=== PATIENT | male | born 1950 | race Caucasian/White ===

== ENCOUNTER 2023-04-17 13:56 | Outpatient (OUT) | payer MEDICARE, SELFPAY ==
--- NOTE | 2023-04-17 | ECG_ITS ---
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
[2023-04-17 14:35] LABS: Basophils Absolute Auto 0.1 10^3/uL (0.0-0.1); Basophils Percent Auto 0.9 % (0.2-2.0); Eosinophils Absolute Auto 0.2 10^3/uL (0.0-0.7); Eosinophils Percent Auto 1.7 % (0.9-7.0); Hemoglobin 14.7 g/dL (14.0-18.0); Immature Granulocytes Abs Auto 0.04 10^3/uL (0.00-0.03); Immature Granulocytes Pct Auto 0.4 % (0.0-0.5); Lymphocytes Absolute Auto 1.4 10^3/uL (1.2-3.8); Lymphocytes Percent Auto 15.5 % (20.5-60.0); Mean Corpuscular HGB Conc 34.2 g/dL (29.9-35.2); Mean Corpuscular Hemoglobin 32.2 pg (25.9-34.0); Mean Corpuscular Volume 94.3 fL (80.0-94.0); Monocytes Absolute Auto 1.1 10^3/uL (0.3-0.8); Monocytes Percent Auto 12.1 % (1.7-12.0); Neutrophils Absolute Auto 6.4 10^3/uL (1.4-6.5); Neutrophils Percent Auto 69.4 % (43.0-75.0); Platelet Count 243 10^3/uL (150-450); Red Blood Count 4.56 10^6/uL (4.70-6.10); Red Cell Distribution Width 12.1 % (11.0-15.0); White Blood Count 9.2 10^3/uL (4.0-11.0)
[2023-04-17 14:41] LABS: INR 1.03; Partial Thromboplastin Time 29.5 sec (22.3-36.2); Prothrombin Time 10.9 sec (9.0-11.6)
[2023-04-17 14:42] LABS: Anion Gap 11.5; BUN Creatinine Ratio 11.6; Calcium 9.1 mg/dL (8.5-10.1); Carbon Dioxide 27.7 mmol/L (21.0-32.0); Chloride 102 mmol/L (98-107); Estimated GFR (African America 54 (>=60); Estimated GFR (Non-African Ame 44 (>=60); Glucose 100 mg/dL (74-106); Potassium 4.2 mmol/L (3.5-5.1); Sodium 137 mmol/L (136-145)
== END 2023-04-17 13:57 | disposition home or self-care (01) ==
LOC: LAB 14:02
PROVIDERS: PCP Internal Medicine; Visit Provider Urology
DX: N20.0 Calculus of kidney (principal); R10.9 Unspecified abdominal pain; I10 Essential (primary) hypertension; E78.00 Pure hypercholesterolemia, unspecified
CPT/HCPCS: 36415; 80048; 85025; 85610; 85730; 93005

== ENCOUNTER 2023-04-20 06:12 | Day surgery (SDC) | payer MEDICARE, SELFPAY ==
[2023-04-20] VITALS (9 sets, daily range): BP systolic 103–146; BP diastolic 68–92; PULSE 62–76; RESP 14–20; TEMP 36.1–36.8; O2SAT 93–98; BMI 31.5
[2023-04-20 06:48] LABS: Glucometer 96 mg/dL (74-106)
[2023-04-20] MEDS: LACTATED RINGER'S SOLUTION 1,000 ML 50 ML IV (06:49)
[2023-04-20] MEDS: CEFAZOLIN SODIUM/DEXTROSE,ISO 1 GM/50 ML IV.SOLN IV (07:27)
--- NOTE | 2023-04-20 08:08 | P.URON_ITS ---
Urology Surgery Operative Note Operative Note Procedure Date: 04/20/23 Time Out Performed: yes Pre-op Diagnosis: obstructing right ureteral calculus Post-op Diagnosis: same Procedures performed: #1. Urethral dilation with Jeane sounds to 26 B[place]an #2. Cystoscopy. #3. Placement of 6 B[place]an variable length right ureteral stent Anesthesia: other (Gen. by LMA) Primary Surgeon: Adan Mcgill Complications: non- Estimated blood loss (mL): 5 Findings: 1. Urethral stenosis. #2. Tightly obstructing right proximal ureteral calculus. #3. High-pressure purulence E flux post stent placement Specimens: none Indications for Procedures: this gentleman has an 11 mm proximal right ureteral calculus that is obstructing. He has had pain from the stone at has been waxing and waning for at least 2-3 months. He has been on Keflex. He now presents for cystoscopy and right stent placement with possible ureteroscopic stone manipulation. She has signed an informed consent after all the risks were explained. Detailed description of Procedure: The patient was brought to the operating room and placed on the operating room table in the supine position. SCDs were placed on the lower extremities and turned on and functioning during the entire case. Timeout was done by all parties in the room. We all agreed upon the patient's identification and the planned procedures for this patient. Genn. anesthesia was then administered. The patient was then repositioned into the modified dorsal lithotomy position. All pressure points were satisfactorily padded. Genitalia were sterilely prepped and draped in usual fashion.I started by attempting to pass a 22 B[place] Olympus cystoscope but was unable due to urethral meatal stenosis. I then used Jeane sounds and dilated him from 20 B[place]an up to 26 [place]an. I then was able to pass the cystoscope into the bladder. The rest of the urethra was normal. The prostatic urethra showed prostatic calcifications diffusely with by lobar hypertrophy. Panendoscopy in the bladder showed high-grade trabeculation with diverticuli formation but no evidence of any tumors or stones. While using fluoroscopy, we could see the stone at the L 2- 3 level. I then passeda Glidewire through the scope and cannulated the right ureter. The wire buckled when I got to the stone. Numerous attempts were used and finally the wire went beyond the stone into the kidney. He had an immediate E flux of cloudy urine coming down the ureter into the bladder. This continued and intennsified. I then elected not to do ureteroscopy. I then passed a 6 Botswanan variable length ureteral stent over the wire. When it got to the stone it buckled also. With steady pressure stent was able to get beyond the stone and into the kidney. In doing so, it advanced the stone proximally into the renal pelvis. When the Glidewire was removed and there was an immediate high-pressure E flux of rather dramatic cloudy inflammatory urine into the bladder. A large aspirate was obtained and sent for culture and sensitivity. There were good curls within the renal pelvis and in the bladder. The bladder was drained of its contents and the scope was then removed. He was then transferred to a rredding bed and wheeled to PACU in stable condition.
[2023-04-20] MEDS: SOLIFENACIN SUCCINATE 10 MG TABLET PO (08:24)
== END 2023-04-20 09:00 | disposition home or self-care (01) ==
PROVIDERS: PCP Internal Medicine; Visit Provider Urology
PROC: (CPT 52332; principal; 2023-04-20 07:30)
DX: N13.2 Hydronephrosis with renal and ureteral calculous obstruction (principal); N35.911 Unspecified urethral stricture, male, meatal; Z79.899 Other long term (current) drug therapy; Z79.84 Long term (current) use of oral hypoglycemic drugs
CPT/HCPCS: 52332; 36415; 76000; 82948; 87086; 99999; C1874; J2704

== ENCOUNTER 2023-04-30 15:56 | Outpatient (OUT) | payer MEDICARE, SELFPAY | END 2023-04-30 15:57 | disposition home or self-care (01) | LOC: PST 15:56 | PROVIDERS: PCP Internal Medicine; Visit Provider Urology | DX: Z01.818 Encounter for other preprocedural examination (principal); N20.0 Calculus of kidney ==

== ENCOUNTER 2023-05-07 10:52 | Day surgery (SDC) | payer MEDICARE, SELFPAY ==
[2023-05-07] VITALS (12 sets, daily range): BP systolic 117–150; BP diastolic 68–101; PULSE 68–79; RESP 11–18; TEMP 36.3; O2SAT 94–99; BMI 31.2
--- NOTE | 2023-05-07 10:45 | XR_ITS ---
The [address] [address] Patient Name: DEVAN ASHTON MRN: [id number] date: 1950 Sex: M Assigned Patient Location: [facility] Current Patient Location: [facility] Accession/Order Number: [id number] Exam Date: 05/07/2023 10:50 Report Date: 05/07/2023 15:45 At the request of: HENNY SCHWARTZ Procedure: XR abdomen 1V EXAMINATION: XR abdomen 1V, [id number] HISTORY: kidney stones COMPARISON: None. FINDINGS/IMPRESSION: A right-sided double-J ureteral stent is present. Calcification projecting over the right ureteropelvic junction measuring 10 x 6 mm. There are 2 small foci of increased attenuation projecting of the left kidney which could represent kidney stones versus fecal material. No calcification projecting over the course of the ureters. Mildly above-average colonic stool burden. Electronically authenticated by: RAMESH HILARIO Date: 05/07/2023 15:45
[2023-05-07 11:31] LABS: Glucometer 93 mg/dL (74-106)
[2023-05-07] MEDS: LACTATED RINGER'S SOLUTION 1,000 ML 50 ML IV ×2 (11:32→14:12)
[2023-05-07] MEDS: CEFAZOLIN SODIUM/DEXTROSE,ISO 1 GM/50 ML IV.SOLN IV (13:10)
--- NOTE | 2023-05-07 14:47 | PM.URSON ---
Urology Surgery Operative Note Operative Note Procedure Date: 05/07/23 Time Out Performed: yes Pre-op Diagnosis: tightly obstructing right UPJ 11-12 mm stone; status post right stent placement Post-op Diagnosis: other (right UPJ stricture) Procedures performed: #1. Cystoscopy. 2. Right stent change to 6 Bolivian variable length. #3. Right rigid ureteral dilation. #4. Right ureteroscopy. #5. Holmium laser lithotripsy of large right ureteral stone. #6. Right ureteral stone basket extraction.#7. Urethral dilation with Jeane sounds to 26 Bolivian. Anesthesia: General-LMA Primary Surgeon: Adan Mcgill Complications: non- Estimated blood loss (mL): 5 Findings: #1. Very large very hard tightly obstructing UPJ stone. #2. Right UPJ stricture Specimens: right UPJ calculus Indications for Procedures: this gentleman has a very large tightly obstructing right UPJ stone for which he has been stented. He now presents for right ESWL and possible definitive ureteroscopic stone manipulation with holmium laser along with possible right stent change.He has signed an informed consent after all the risks were explained to him.alysa with stent change. Detailed description of Procedure: The patient was brought to the Operating Room and placed on Siemens electromagnetic lithotripsy treatment table in the supine position. SCDs were placed on their lower extremities and turned on and functioning during the entire case. Timeout was done by all parties in the room. We all agreed upon the patient's identification and the planned procedures for this patient. General Anesthesia was then administered via LMA. Treatment head was then brought to the patient's right side. While using flourscopy the stone was identified and lined up into the crosshairs. We then began applying shocks at power level II.0 and increased to a maximum power level III.5. Intermittent fluoroscopy showed that the stone was very slow to fragment. We ended up applying 2000 shocks and had minimal fragmentation. The procedure was then terminated. He was then repositioned into the modified dorsal lithotomy position. All pressure points were satisfactorily padded. Genitalia were sterilely prepped and draped in usual fashion. I then started by passing a 22 Bolivian Olympus cystoscope per urethra but was unable due to meatal stenosis. I then used [place] sounds and dilated his meatus up to 26 Bolivian. I then was able to pass the scope through the urethra and into the bladder. The stent was identified. A flexible grasping forceps was passed and the end of the stent was grasped. I then brought the end of the stent out of the urethral meatus. I then slid a Glidewire through the stent up into the kidney and remove the old stent. A navigator 08/10 ureteral access sheath over the wire and up the ureter to the L5 position. The wire and stylette were removed. I then passed a flexible ureteroscope through the access sheath and into the ureter. I then ascended up the ureter and arrived at the stone. The stone was tightly obstructing the UPJ. It was impacted. I then used a 200 ? holmium laser fiber and passed it through the scope and made contact with the stone. I then set the mode to dusting and began doing laser lithotripsy at 10 W continuously. The stone would not fragment at 10 W. I increased up to 12 W and then ultimately to 14 W. The stone finally began to fragment slowly. One could see that the UPJ was strictured down from the stone. A 0 tip nitinol basket was used intermittently to extract pieces out. These were all sent for analysis. I had to laser several thousand pulses in order to get the stone fragmented enough to rremove all the pieces. I was able to get the scope through the strictured UPJ and into the kidney. No other stones were seen. I then passed a Glidewire through the scope into the kidney and removed the scope. I then removed the access sheath. I then asked loaded the cystoscope over the wire and passed it into the bladder. I then slid a new 6 Bolivian variable length ureteral stent over the wire into the kidney. The wire was removed and there were good curls in the kidney and in the bladder. The bladder was drained of its contents and the scope was then removed. He was then transferred to a [facility] bed and wheeled to PACU in stable condition. The last fluoroscopic view showed no evidence of stone remaining.
[2023-05-07] MEDS: SOLIFENACIN SUCCINATE 10 MG TABLET PO (15:04)
[2023-05-07] MEDS: HYDROCODONE/ACETAMINOPHEN 5-325 MG TABLET 1 TAB PO (15:35)
[2023-05-07] MEDS: HYOSCYAMINE SULFATE 0.125 MG/ML DROPS 0.25 MG PO (16:10)
[2023-05-15 15:13] LABS: Calcium Oxalate Monohydrate 100 % (.); Size 2x4 mm (.); Source Kidney (.)
== END 2023-05-07 16:47 | disposition home or self-care (01) ==
PROVIDERS: PCP Internal Medicine; Visit Provider Urology
PROC: (CPT 52356; principal; 2023-05-07 13:20)
DX: N13.2 Hydronephrosis with renal and ureteral calculous obstruction (principal); N35.911 Unspecified urethral stricture, male, meatal; Z79.899 Other long term (current) drug therapy
CPT/HCPCS: 52356; 36415; 74018; 82365; 82948; 99999; C1874; J2704

== ENCOUNTER 2023-08-18 08:56 | Outpatient (OUT) | payer MEDICARE, SELFPAY ==
--- NOTE | 2023-08-18 08:58 | ECG_ITS ---
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
[2023-08-18 09:37] LABS: Basophils Absolute Auto 0.1 10^3/uL (0.0-0.1); Eosinophils Absolute Auto 0.2 10^3/uL (0.0-0.7); Eosinophils Percent Auto 2.4 % (0.9-7.0); Hematocrit 40.6 % (42.0-54.0); Hemoglobin 13.7 g/dL (14.0-18.0); Immature Granulocytes Abs Auto 0.03 10^3/uL (0.00-0.03); Immature Granulocytes Pct Auto 0.4 % (0.0-0.5); Lymphocytes Absolute Auto 1.7 10^3/uL (1.2-3.8); Lymphocytes Percent Auto 23.6 % (20.5-60.0); Mean Corpuscular HGB Conc 33.7 g/dL (29.9-35.2); Mean Corpuscular Hemoglobin 32.6 pg (25.9-34.0); Mean Corpuscular Volume 96.7 fL (80.0-94.0); Monocytes Absolute Auto 0.9 10^3/uL (0.3-0.8); Monocytes Percent Auto 12.1 % (1.7-12.0); Neutrophils Absolute Auto 4.4 10^3/uL (1.4-6.5); Neutrophils Percent Auto 60.5 % (43.0-75.0); Platelet Count 243 10^3/uL (150-450); Red Cell Distribution Width 12.3 % (11.0-15.0); White Blood Count 7.2 10^3/uL (4.0-11.0)
--- NOTE | 2023-08-18 09:42 | PM.PRESUREVA ---
History of Present Illness History of Present Illness Chief complaint: right kidney stone Narrative: Presents for preadmission testing. The patient states he is being treated for right-sided kidney stones. He states he had an episode about four months ago and he had a stent inserted which was subsequently removed. He states he's had a few instances of right flank pain but otherwise no complaints. He denies hematuria, dysuria, abdominal pain, nausea, vomiting, fever, or any other complaints. Review of Systems ROS Narrative REVIEW OF SYSTEMS: Negative except as stated in HPI, ten or more systems reviewed. Constitutional: No fever , chills, weakness ENT: No sore throat or epistaxis Cardiovascular: No edema, chest pain, palpitations, or activity intolerance Respiratory: No shortness of breath, cough, or wheezing Musculoskeletal: No joint pain or swelling Gastrointestinal: No abdominal pain, constipation, diarrhea, or vomiting Genitourinary: No dysuria or hematuria Neurological: No numbness, tingling, weakness, or headache Psychiatric: No mood changes PFSH PFS Medical History (Updated 08/18/23 @ 09:47 by Lili Madrigal NP) Arthritis ?M19.90 - Unspecified osteoarthritis, unspecified site (ICD-10) Diabetes ?E11.9 - Type 2 diabetes mellitus without complications (ICD-10) GERD (gastroesophageal reflux disease) ?K21.9 - Gastro-esophageal reflux disease without esophagitis (ICD-10) High cholesterol ?E78.00 - Pure hypercholesterolemia, unspecified (ICD-10) Hypertension ?I10 - Essential (primary) hypertension (ICD-10) Kidney stone ?N20.0 - Calculus of kidney (ICD-10) Reflux gastritis ?K29.60 - Other gastritis without bleeding (ICD-10) Renal cyst ?N28.1 - Cyst of kidney, acquired (ICD-10) Seasonal allergies ?J30.2 - Other seasonal allergic rhinitis (ICD-10) Surgical History (Updated 08/18/23 @ 09:20 by Lili Madrigal NP) H/O umbilical hernia repair ?Z98.890 - Other specified postprocedural states (ICD-10) ?Z87.19 - Personal history of other diseases of the digestive system (ICD-10) Hx of tonsillectomy ?Z90.89 - Acquired absence of other organs (ICD-10) S/P cystoscopy ?Z98.890 - Other specified postprocedural states (ICD-10) S/P right knee arthroscopy ?Z98.890 - Other specified postprocedural states (ICD-10) S/P ureteral stent placement ?Z96.0 - Presence of urogenital implants (ICD-10) Family History (Updated 04/17/23 @ 15:23 by Ernestina Bedoya RN) Other Arthritis Diabetes Heart disease Hypertension Renal failure Social History (Updated 04/30/23 @ 12:37 by Dee Funk) Within the past year, how often did you have a drink containing alcohol: 2-3 times a week Smoking status: Never smoker Non-prescribed substance use: denies use Previous occupational history: retired Highest level of school completed/degree received: Bachelor's degree Meds Home Medications and Allergies Home Medications Medication Instructions Recorded Confirmed Type cetirizine 10 mg disintegrating 10 mg PO DAILY PRN allergy symptoms 04/17/23 08/18/23 History tablet losartan 100 mg tablet 100 mg PO DAILY 04/17/23 08/18/23 History multivitamin (Daily Multi-Vitamin 1 tab PO QAM 04/17/23 08/18/23 History tablet) naproxen sodium 220 mg capsule 220 mg PO Q12H 04/17/23 08/18/23 History (Aleve) pantoprazole 40 mg tablet,delayed 40 mg PO DAILY 04/17/23 08/18/23 History release lovastatin 40 mg tablet 40 mg PO DAILY 08/18/23 08/18/23 History semaglutide 1 mg/dose (4 mg/3 mL) 0.5 mg subcut QWEEK 08/18/23 08/18/23 History subcutaneous pen injector (Ozempic) Allergies Allergy/AdvReac Type Severity Reaction Status Date / Time acetaminophen [From Percocet] AdvReac Mild Insomnia Verified 04/17/23 15:39 oxycodone [From Percocet] AdvReac Mild Insomnia Verified 04/17/23 15:39 Exam Narrative Exam Narrative: Constitutional: Awake, alert, comfortable, well-appearing, nontoxic, interactive, vital signs as charted Head: Normocephalic, atraumatic Neck: Supple, normal appearance, normal range of motion, no meningeal signs, no lymphadenopathy Respiratory: No respiratory distress, breath sounds clear Cardiovascular: Regular rate and rhythm, strong and regular heart tones Abdomen: Nontender, normal bowel sounds, soft, no CVA tenderness Musculoskeletal: Normal gait, no swelling or edema Skin: No rashes or induration, no lesions, only visible skin inspected Neuro: No neurological deficits, normal sensation Psychiatric: Oriented ?3, normal affect Assessment and Plan Assessment and Plan (1) Kidney stone: (2) Renal cyst: Plan Right ESWL scheduled with Dr. Mcgill 08/27/2023.
[2023-08-18 09:52] LABS: INR 1.04; Partial Thromboplastin Time 29.3 sec (22.3-36.2)
[2023-08-18 10:39] LABS: Anion Gap 14.8; BUN Creatinine Ratio 14.4; Calcium 8.7 mg/dL (8.5-10.1); Carbon Dioxide 26.5 mmol/L (21.0-32.0); Chloride 104 mmol/L (98-107); Estimated GFR (African America >60 (>=60); Estimated GFR (Non-African Ame >60 (>=60); Glucose 98 mg/dL (74-106); Potassium 4.3 mmol/L (3.5-5.1); Sodium 141 mmol/L (136-145)
== END 2023-08-18 08:57 | disposition home or self-care (01) ==
LOC: PST 08:56
PROVIDERS: PCP Internal Medicine; Visit Provider Urology
DX: Z01.810 Encounter for preprocedural cardiovascular examination (principal); Z01.812 Encounter for preprocedural laboratory examination; N20.0 Calculus of kidney
CPT/HCPCS: 36415; 80048; 85025; 85610; 85730; 93005; G0463

== ENCOUNTER 2023-08-27 09:45 | Day surgery (SDC) | payer MEDICARE, SELFPAY ==
[2023-08-18 09:40] VITALS: BP 129/74; PULSE 64; RESP 16; TEMP 36.2; O2SAT 96; BMI 33.1
[2023-08-27] VITALS (7 sets, daily range): BP systolic 118–140; BP diastolic 73–94; PULSE 65–92; RESP 10–18; TEMP 36.1–36.2; O2SAT 96–98; BMI 33.0
--- NOTE | 2023-08-27 09:15 | XR_ITS ---
The [address] [address] Patient Name: DEVAN ASHTON MRN: [id number] date: 1950 Sex: M Assigned Patient Location: [facility] Current Patient Location: [facility] Accession/Order Number: [id number] Exam Date: 08/27/2023 09:30 Report Date: 08/27/2023 13:41 At the request of: HENNY SCHWARTZ Procedure: XR abdomen 1V EXAM: XR abdomen 1V HISTORY: KIDNEY STONES COMPARISON: None. TECHNIQUE: AP view of the abdomen. FINDINGS: Nonobstructive bowel gas pattern is noted. There is no suspicious calcification. The osseous structures are intact. XR/XR abdomen 1V IMPRESSION: Nonobstructive bowel gas pattern. Constipation. No suspicious renal calcification. Electronically authenticated by: ENZO KASPER Date: 08/27/2023 13:41
[2023-08-27 10:00] LABS: Glucometer 108 mg/dL (74-106)
[2023-08-27] MEDS: LACTATED RINGER'S SOLUTION 1,000 ML 50 ML IV (10:02)
[2023-08-27] MEDS: CEFAZOLIN SODIUM/DEXTROSE,ISO 2 GM/50 ML PIGGYBACK IV (11:33)
--- NOTE | 2023-08-27 12:14 | P.URON_ITS ---
Urology Surgery Operative Note Operative Note Procedure Date: 08/27/23 Time Out Performed: yes Pre-op Diagnosis: , right nephrolithiasis Post-op Diagnosis: same as pre-op Procedures performed: . #1. Right ESWL. Anesthesia: General-LMA Primary Surgeon: Adan Mcgill Complications: none Estimated blood loss (mL): 0 Specimens: . None Indications for Procedures: gentleman had right ESWL A few months ago for a right renal stone burden. He now presents for a 2nd ESWL treatment to complete fragmentation of his original stone burden. He has signed an informed consent after risks were explained. Some of these include bleeding, perinephric hematoma, infection and anesthesia to name a few. Detailed description of Procedure: The patient was brought to the Operating Room and placed on Siemens electromagnetic lithotripsy treatment table in the supine position. SCDs were placed on their lower extremities and turned on and functioning during the entire case. Timeout was done by all parties in the room. We all agreed upon the patient's identification and the planned procedures for this patient. General Anesthesia was then administered via LMA. Treatment head was then brought to the patient's correct side. While using flourscopy the stone was identified and lined up into the crosshairs. We then began applying shocks at power level II.0 and increased to a maximum of power level III.5. Intermittent fluoroscopy showed that the stone steadily fragmented. We applied a total of 3000 shocks and our last fluoroscopic image revealed no evidence of remaining stone. The procedure was then terminated. He was then transferred to a [facility] bed and wheeled to PACU in stable condition.
--- NOTE | 2023-08-27 12:37 | PC.NURSE ---
Quarter sized abrasion to right flank with redness or bruising; no drainage noted
--- NOTE | 2023-08-27 13:02 | PC.NURSE ---
area to right flank unchanged from initial assessment
== END 2023-08-27 13:42 | disposition home or self-care (01) ==
PROVIDERS: PCP Internal Medicine; Visit Provider Urology
PROC: (CPT 50590; principal; 2023-08-27 10:30)
DX: N20.0 Calculus of kidney (principal); K21.9 Gastro-esophageal reflux disease without esophagitis; N28.1 Cyst of kidney, acquired; I10 Essential (primary) hypertension; E11.9 Type 2 diabetes mellitus without complications; E78.5 Hyperlipidemia, unspecified; J30.2 Other seasonal allergic rhinitis; Z79.84 Long term (current) use of oral hypoglycemic drugs
CPT/HCPCS: 50590; 36415; 74018; 82948

== ENCOUNTER 2025-01-19 12:12 | Day surgery (SDC) | payer MEDICARE, SELFPAY ==
[2025-01-19] VITALS (10 sets, daily range): BP systolic 108–159; BP diastolic 68–96; PULSE 61–72; TEMP 36.1–36.4; O2SAT 89–99; BMI 31.1
--- NOTE | 2025-01-19 12:14 | XR_ITS ---
The [address] [address] Patient Name: DEVAN ASHTON MRN: [id number] date: 1950 Sex: M Assigned Patient Location: [facility] Current Patient Location: [facility] Accession/Order Number: [id number] Exam Date: 01/19/2025 13:55 Report Date: 01/19/2025 13:55 At the request of: HENNY SCHWARTZ MD Procedure: XR abdomen 1V KUB: CLINICAL INFORMATION: Kidney stones COMPARISON: None FINDINGS: No suspicious urinary tract calculus. Phleboliths are seen within the pelvis. No bowel obstruction or free air. XR/XR abdomen 1V IMPRESSION: NO SUSPICIOUS URINARY TRACT CALCULUS. Impression dictated by: Marsha Paige Jr.OMartin01/19/2025 1:55 PM Dictation Location: [place] [address] Electronically authenticated by: [id number] Y Date: 01/19/2025 13:55
[2025-01-19 12:57] LABS: Glucometer 85 mg/dL (74-106)
[2025-01-19] MEDS: LACTATED RINGER'S SOLUTION 1,000 ML 50 ML IV (13:08)
[2025-01-19] MEDS: CEFAZOLIN SODIUM 2 GM/50 ML D5W PREMIX IV (14:50)
[2025-01-19] MEDS: IOHEXOL 300 MG/ML - 50 ML BTL INJ (16:15)
[2025-01-19] MEDS: GENTAMICIN SULFATE IV (16:25)
[2025-01-19] MEDS: SODIUM CHLORIDE 0.9% IV (16:25)
--- NOTE | 2025-01-19 16:27 | P.URON_ITS ---
Urology Surgery Operative Note Operative Note Procedure Date: 01/19/25 Time Out Performed: yes Pre-op Diagnosis: Right flank pain and obstructing right upper moiety UPJ calculus Post-op Diagnosis: other (Same plus impacted right upper moiety UPJ calculus. Also, infundibular stenosis) Procedures performed: 1. Right ESWL. 2. Cystoscopy. 3. Right retrograde pyelogram. 4. Right rigid ureteral dilation. 5. Right ureteroscopy. 6. Thulium laser lithotripsy of right upper moiety UPJ calculus. 7. Placement of 6 Nigerian variable length right ureteral stent Anesthesia: General-LMA Primary Surgeon: Adan Mcgill Complications: None Estimated blood loss (mL): 5 Findings: 1. Urethral meatal stenosis. 2. Right distal ureteral stenosis. 3. Right upper pole moiety UPJ obstructing and impacted calculus along with stricture formation. Specimens: None Drains: 6 Nigerian variable length right ureteral stent Indications for Procedures: This gentleman has had right flank pain for a couple months. He finally got a CT scan done and this showed a 4 mm right upper moiety UPJ obstructing calculus and intrarenal calculi. He now presents for right ESWL, possible right ureteroscopic laser lithotripsy and stent placement. He has signed an informed consent after risks were explained. Some of these risks include bleeding, infection, perinephric hematoma, anesthesia to name a few. Detailed description of Procedure: The patient was brought to the Operating Room and placed on Siemens electro magnetic lithotripsy treatment table in the supine position. SCDs were placed on their lower extremities and turned on and functioning during the entire case. Timeout was done by all parties in the room. We all agreed upon the patient's identification and the planned procedures for this patient. General Anesthesia was then administered via LMA. Treatment head was then brought to the patient's correct side. While using flourscopy the right UPJ stone at L1 was identified and lined up into the crosshairs. We then began applying shocks. We started at a power level 2.0 and increased to a maximum power level of 3.5. Intermittent fluoroscopy revealed that the stone rather quickly fragmented. We gave a total of 1500 shocks. No other stone was identified with fluoroscopy. Therefore, ESWL was stopped. Since the patient did have pain for 2 months I elected to at least do a cystoscopy and retrograde. The patient was then repositioned into the modified dorsolithotomy position. All pressure points were satisfactorily padded. Genitalia were sterilely prepped and draped in the usual fashion. I started by passing a 22 Nigerian Olympus cystoscope per urethra and into the bladder. He had urethral meatal stenosis. I was able to eventually get the scope through the meatus without formally dilating him. Panendoscopy in the bladder showed no evidence of any tumors or stones or lesions. I then passed a 6 Nigerian open-ended ureteral catheter through the scope and cannulated the right ureter. A retrograde pyelogram was done and this showed a normal lower pole moiety but a blind ending upper pole moiety. This was blind ending at L1. In light of the fact that he has had pain for 2 months I elected to do ureteroscopy and take a look at this upper pole moiety ureter. A Glidewire was passed up the ureter and into the kidney. I then used a 10 Nigerian rigid dilator to dilate the distal ureter. The scope and dilator were removed. I then passed a flexible ureteroscope over the wire and into the ureter. I ascended up the ureter and I could see the bifurcation of the ureter to the lower pole moiety and to the upper pole moiety. I went straight up into the upper pole moiety and the ureter was blind-ending because it was obstructed with significant stone and stricture disease. I attempted to pass a Glidewire and gently poke through this obstruction but I was unable. I used the beak of the scope to attempt to bluntly free it up but was unable. This seemed like it was significant stone particles obstructing the ureter with significant stricture formation. I therefore passed a 200 Angstrom laser fiber through the scope and I carefully lasered the stone at 6 W fragmentation mode with the thulium laser. As I fragmented, this freed up pieces that were streaming down the ureter. I continued to to fragment as much as I could safely. The ureter in this area was irregular and strictured and indurated. The stone pieces seemed to ascend further up than the scope would go. They were embedded within the strictured ureter. I lasered all that I could and opened up the channel somewhat. I passed a wire and tried to break loose stone pieces. Some did come out after this. I used the basket to try to extract pieces but could not get any out. These pieces were incorporated into the stricture. I then did a retrograde through the scope and this showed the stenotic area opening up into calyces. I was able to get the wire through this narrowed area into the calyces. The stenotic area was unable to be dilated or mechanically opened up. I was unable to get the scope safely through it. I was also unable to get a stent through this area. I elected to stop the procedure at this time. There was still some impacted stone incorporated into this strictured area but the bulk of it was removed. The scope was then removed after the Glidewire was passed up. I then backloaded the cystoscope over the wire and passed it into the bladder. I then slid a 6 Nigerian variable length stent over the wire up into the kidney. I guided the tip of the stent into the lower pole moiety. The wire was removed and there were curls within the renal pelvis albeit narrow renal pelvis. There were curls within the bladder. The bladder was drained of its contents and the scope was then removed. He was then transferred to a [facility] bed and wheeled to PACU in stable condition.
[2025-01-19] MEDS: SOLIFENACIN SUCCINATE 10 MG TABLET PO (17:02)
--- NOTE | 2025-01-19 17:26 | PC.NURSE ---
blood tinged urine
== END 2025-01-19 18:03 | disposition home or self-care (01) ==
PROVIDERS: PCP Internal Medicine; Visit Provider Urology
PROC: (CPT 50590; principal; 2025-01-19 13:40)
DX: N13.2 Hydronephrosis with renal and ureteral calculous obstruction (principal); N35.911 Unspecified urethral stricture, male, meatal; Q62.10 Congenital occlusion of ureter, unspecified; Z87.442 Personal history of urinary calculi; R39.12 Poor urinary stream; E11.9 Type 2 diabetes mellitus without complications; Z79.85 Long-term (current) use of injectable non-insulin antidiabetic drugs; G47.33 Obstructive sleep apnea (adult) (pediatric); E78.5 Hyperlipidemia, unspecified; I10 Essential (primary) hypertension
CPT/HCPCS: 50590; 52344; 52356; 36415; 74018; 82948; J0690; J1100; J1580; J1885; J2250; J2371; J2405; J2704; J3010; Q9967